=== PATIENT | male | born 1995 ===

== ENCOUNTER → 2020-02-15 | Outpatient (CLI) | payer OTHER ==
[~2020-02-15] MED LIST: CONTRAST GIVEN. MC PRN; GADOTERATE 5 MMOL/10ML VIAL. IVP ONE; IOHEXOL 300 MG/ML 50 ML VIAL. IJ ONE; LIDOCAINE 1% Multi-Dose 20 ML VIAL. INJ ONE; LIDOCAINE WITH 8.4% SOD BICARB 3 ML DISP.SYRIN. ONE
--- NOTE | 2020-02-15 16:26 | RAD ---
EXAM: Fluoroscopically guided left glenohumeral joint injection for MRI arthrogram INDICATION: Left shoulder pain. Labral tear. COMPARISON: None TECHNIQUE/FINDINGS: The purpose of the procedure and risks and benefits were discussed with the patient. Informed consent was obtained. A timeout was performed. After obtaining consent, the patient was placed supine on the fluoroscopy table with the left shoulder externally rotated. The skin overlying the left glenohumeral joint was marked, sterilized and draped. Superficial and deep soft tissues were anesthetized with 1% lidocaine. Utilizing fluoroscopic guidance, a 22-gauge 1.5 inch needle was advanced into the joint. Intraarticular position was confirmed with injection of a small amount of iodinated contrast. Subsequently, 13 mm of a solution containing the following items was instilled into the joint: 10 mL of 1% lidocaine, 5 mL of sterile saline, 5 mL of non-ionic iodinated contrast, and 0.1 mL of gadolinium. At the end of the procedure, the needle was removed. The overlying skin was cleansed and covered with a bandaid. The patient tolerated the procedure well and was free of immediate complications. The patient was transferred for the MR portion of the exam in stable condition. Total fluoroscopic time: 0.3 minutes. 2 fluoroscopic images acquired. IMPRESSION: Technically successful left glenohumeral joint injection for the purposes of MR arthrogram. Electronically signed by: Zahira Avila MD (02/15/2020 4:23 PM) [id number]
--- NOTE | 2020-02-15 17:23 | RAD ---
EXAM: MRI arthrogram left shoulder DATE: 02/15/2020 INDICATION: Labral tear COMPARISON: None TECHNIQUE: Multiplanar, multisequence imaging of the left shoulder after intra-articular injection of contrast, performed separately. FINDINGS: ROTATOR CUFF: The supraspinatus, infraspinatus, subscapularis, and teres minor tendons are intact. No rotator cuff muscle atrophy or edema. LABRUM: No definite labral tear. Smooth, thin linear contrast-filled defect at the superior labrum extending medially toward the glenoid is likely a superior sub-labral recess, normal variant. Diminutive anterior superior labrum and thickened middle glenohumeral ligament may also be a normal variant. BICEPS TENDON: The biceps tendon is intact and located. ACROMIOCLAVICULAR JOINT: Normal. Type I acromion without downsloping. GLENOHUMERAL JOINT: Articular cartilage is intact. No acute fracture or marrow signal abnormality. Alignment is normal. OTHER: Contrast distends the joint. No intra-articular body. No subacromial-subdeltoid bursitis. IMPRESSION:No definite labral tear or other acute abnormality. Electronically signed by: Zahira Avila MD (02/15/2020 5:20 PM) [id number]
== END | disposition home or self-care (01) ==
LOC: RAD 13:20
PROVIDERS: ATTEND Physician Assistant
DX: S43.432A Superior glenoid labrum lesion of left shoulder, initial encounter (principal); X58.XXXA Exposure to other specified factors, initial encounter; Y93.89 Activity, other specified; Y92.89 Other specified places as the place of occurrence of the external cause; Y99.8 Other external cause status
CPT/HCPCS: 73040; 73222; A9575; J3490; Q9967